=== PATIENT | female | born 1960 | race Caucasian/White ===

== ENCOUNTER → 2018-03-29 | Outpatient (CLI) | payer OTHER ==
[~2018-03-29] MED LIST: FENTANYL PF 100 MCG/2ML ONE; FLUMAZENIL 0.1 MG/1 ML, 5ML ONE; MIDAZOLAM 1 MG/ML, 5ML ONE; NALOXONE 1 MG/ML, 2ML ONE
== END | disposition home or self-care (01) ==
LOC: RAD 09:14
PROVIDERS: ATTEND Pain Medicine Interventional Pain Medicine
DX: M51.36 Other intervertebral disc degeneration, lumbar region (principal)
CPT/HCPCS: 72146; 72148; 99156; 99157; J2250; J3010; J2310

== ENCOUNTER 2018-10-15 10:26 | Outpatient (CLI) | payer OTHER ==
[2018-10-15] MEDS ORDERED: ESTR1PAT25 TD (11:08)
[2018-10-15] MEDS ORDERED: CALC-534 PO (11:08)
[2018-10-15] MEDS ORDERED: RIZA10TA20 PO (11:08)
[2018-10-15] MEDS ORDERED: JUICE PLUS PO (11:08)
[2018-10-15 11:36] LABS: BASOPHILS # (AUTO) 0.02 x10^3/uL (0-0.1); BASOPHILS % (AUTO) 1 % (0-1); EOSINOPHILS # (AUTO) 0.06 x10^3/uL (0-0.4); EOSINOPHILS % (AUTO) 1 % (1-7); LYMPHOCYTES # (AUTO) 1.35 x10^3/uL (1-3.4); LYMPHOCYTES % (AUTO) 30 % (22-44); MD NO; MEAN CORPUSCULAR HEMOGLOBIN 32.7 pg (27.0-34.8); MEAN CORPUSCULAR HGB CONC 33.8 g/dL (32.4-35.8); MEAN CORPUSCULAR VOLUME 96.8 fL (80-100); MEAN PLATELET VOLUME 7.9 fL (7.4-10.4); MONOCYTES # (AUTO) 0.39 x10^3/uL (0.2-0.8); MONOCYTES % (AUTO) 9 % (2-9); NEUTROPHILS # (AUTO) 2.62 x10^3/uL (1.8-6.8); NEUTROPHILS % (AUTO) 59 % (42-75); PLATELET COUNT 250 x10^3/uL (130-400); RED BLOOD COUNT 4.28 x10^6/uL (3.82-5.3); RED CELL DISTRIBUTION WIDTH 13.1 % (9.6-15.2)
[2018-10-15 11:44] LABS: ANION GAP 0 mmol/L (5-15); CALCIUM 9.2 mg/dL (8.5-10.1); CHLORIDE 108 mmol/L (98-107)
[2018-10-15 11:45] LABS: CREATININE 0.78 mg/dL (0.55-1.02)
[2018-10-29] MEDS ORDERED: HYDR-3240 PO (12:17)
== END 2018-10-15 23:59 | disposition home or self-care (01) ==
LOC: STAR 10:26
PROVIDERS: ATTEND Orthopaedic Surgery
DX: Z01.818 Encounter for other preprocedural examination (principal); M17.11 Unilateral primary osteoarthritis, right knee
CPT/HCPCS: 36415; 80048; 85025; 87081; 93005

== ENCOUNTER 2019-06-20 06:09 | Day surgery (SDC) | payer OTHER ==
[~2019-06-20] VITALS: Ht 172.7 cm; Wt 69.0 kg
[~2019-06-20 06:09] MED LIST changes: +CALC-534 PO; +ESTR1PAT25 TD; -FENTANYL PF 100 MCG/2ML ONE; -FLUMAZENIL 0.1 MG/1 ML, 5ML ONE; +FLUO20CA19 PO; +HYDR-3240 PO; +JUICE PLUS PO; -MIDAZOLAM 1 MG/ML, 5ML ONE; -NALOXONE 1 MG/ML, 2ML ONE; +RIZA10TA20 PO; +SUMA50TA3 PO
[2019-06-20] MEDS ORDERED: LACTATED RINGERS 1,000 ML IV SCH (06:51)
[2019-06-20 06:54] VITALS: BP 145/87
[2019-06-20] MEDS ORDERED: CHLORHEXIDINE 15 ML UDC ONE (06:58)
[2019-06-20] MEDS ORDERED: CHLORHEXIDINE 15 ML UDC MM ONE (07:00)
[2019-06-20] MEDS ORDERED: BUPIVACAINE/PF-EPI 0.5% 1:200K ONE (08:12)
[2019-06-20] MEDS ORDERED: NEOSTIGMINE 1 MG/ML, 10ML ONE (08:19)
[2019-06-20] MEDS ORDERED: DEXAMETHASONE 4 MG/ML, 1ML ONE (08:19)
[2019-06-20] MEDS ORDERED: SUCCINYLCHOLINE 20 MG/ML, 10ML ONE (08:19)
[2019-06-20] MEDS ORDERED: ONDANSETRON 2MG/ML, 2ML ONE (08:19)
[2019-06-20] MEDS ORDERED: ROCURONIUM 10 MG/ML,10ML ONE (08:19)
[2019-06-20] MEDS ORDERED: PROPOFOL 10 MG/ML, 20ML ONE (08:19)
[2019-06-20] MEDS ORDERED: CEFAZOLIN 1,000 MG ONE (08:19)
[2019-06-20] MEDS ORDERED: GLYCOPYRROLATE 0.2MG/1ML, 5ML ONE (08:19)
[2019-06-20] MEDS ORDERED: SCOPOLAMINE 1MG PATCH TD ONE (08:30)
[2019-06-20] MEDS ORDERED: FENTANYL PF 100 MCG/2ML ONE ×2 (09:53→10:09)
[2019-06-20] MEDS ORDERED: OXYcodone 5 MG/5 ML ORAL.SOL UDC ONE (09:53)
[2019-06-20] MEDS: OXYcodone 5 MG/5 ML ORAL.SOL UDC PO PRN ×2 (09:55→14:11)
[2019-06-20] MEDS: FENTANYL PF 100 MCG/2ML IV PRN ×5 (09:55→10:15)
[2019-06-20] MEDS ORDERED: LABETALOL 5MG/ML, 20ML IV PRN (10:00)
[2019-06-20] MEDS ORDERED: PROMETHAZINE 25 MG/ML, 1ML IVPush PRN (10:00)
[2019-06-20] MEDS ORDERED: HALOPERIDOL 5 MG/ML IV PRN (10:00)
[2019-06-20] MEDS ORDERED: hydrALAzine 20 MG/ML, 1ML IV PRN (10:00)
[2019-06-20] MEDS ORDERED: HYDROmorphone 1 MG/ML, 1ML INJ IVPush PRN (10:00)
[2019-06-20] MEDS ORDERED: MEPERIDINE/PF 25MG/0.5ML IVPush PRN (10:00)
[2019-06-20] MEDS ORDERED: LORazepam 2 MG/ML, 1ML ONE (10:27)
[2019-06-20] MEDS: LORazepam 2 MG/ML, 1ML IVPush PRN ×2 (10:30→10:35)
== END 2019-06-20 15:15 | disposition home or self-care (01) ==
LOC: OUT 06:09
PROVIDERS: ATTEND Surgery
DX: K40.91 Unilateral inguinal hernia, without obstruction or gangrene, recurrent (principal); M19.90 Unspecified osteoarthritis, unspecified site; Z88.0 Allergy status to penicillin; Z88.1 Allergy status to other antibiotic agents; Z88.2 Allergy status to sulfonamides; Z88.8 Allergy status to other drugs, medicaments and biological substances; Z98.890 Other specified postprocedural states
CPT/HCPCS: 49520; C1781; J2060; J3010; J7120; J0690; J1100; J2405; J2704; J2710; J0330